=== PATIENT | male | born 1970 | race African-American/Black ===

== ENCOUNTER 2017-07-22 08:51 | Emergency (ER) | payer MEDICAID, OTHER ==
[2017-07-22 10:00] LABS: #Basophils 0.1 thou/uL (0.0-0.2); #Lymphocytes 1.4 thou/uL (1.20-3.40); #Monocytes 0.4 thou/uL (0.11-0.59); #Neutrophils 3.7 thou/uL (1.40-6.50); %Basophils 0.9 % (0.0-1.0); %Eosinophils 0.4 % (0.0-10.0); %Lymphocytes 25.3 % (21.0-51.0); %Monocytes 6.9 % (0.0-10.0); Hematocrit 43.2 % (42.0-52.0); Red Blood Cell (RBC) Count 4.33 mill/uL (4.70-6.10); White Blood Cell (WBC) Count 5.5 thou/uL (4.8-10.8)
[2017-07-22 10:25] LABS: Troponin I 0.011 ng/mL (< 0.028)
[2017-07-22 10:33] LABS: ALT (SGPT) 32 U/L (8-55); AST (SGOT) 50 U/L (5-34); Alkaline Phosphatase 94 U/L (40-150); Anion Gap 14 mmol/L (10-20); BUN (Urea Nitrogen) 23 mg/dL (8.9-20.6); CK (CPK) 737 U/L (30-200); Calc. Creatinine Clearance 0 mL/min (70-130); Calcium 9.8 mg/dL (7.8-10.44); Carbon Dioxide 23 mmol/L (22-29); Chloride 103 mmol/L (98-107); Estimated GFR-MDRD 79; Globulin 3.5 g/dL (2.4-3.5); Lipase 24 U/L (8-78); Protein, Total 7.8 g/dL (6.0-8.3)
--- NOTE | 2017-07-22 11:54 | RAD ---
CHEST 1 VIEW: Date: 07/22/17 HISTORY: Chest pain. COMPARISON: Chest 1 view dated 03/31/17. FINDINGS: Lungs are clear. No pneumothorax or effusion. Cardiac silhouette and mediastinal contours within norm al limits. IMPRESSION: No acute intrathoracic abnormality. No significant change. POS: H
== END 2017-07-22 11:42 | disposition home or self-care (01) ==
LOC: ERS 08:51
DX: B34.9 Viral infection, unspecified (principal); R07.2 Precordial pain; F41.9 Anxiety disorder, unspecified; F31.9 Bipolar disorder, unspecified; F17.210 Nicotine dependence, cigarettes, uncomplicated
CPT/HCPCS: 36415; 71010; 80053; 82553; 83690; 84484; 85025; 85652; 86140; 93005; 99406

== ENCOUNTER 2017-09-05 09:14 | Emergency (ER) | payer OTHER ==
[2017-09-05] MEDS ORDERED: Fluorescein Opthalmic Strip ONE (09:51)
[2017-09-05] MEDS ORDERED: Proparacaine 0.5% Opth 15 ML BOT ONE (09:51)
== END 2017-09-05 11:08 | disposition home or self-care (01) ==
LOC: ERS 09:14
DX: H20.9 Unspecified iridocyclitis (principal)
CPT/HCPCS: 99283